=== PATIENT | male | born 1985 | race Caucasian/White ===

== ENCOUNTER 2019-10-12 07:28 | Outpatient (CLI) | payer OTHER, SELFPAY ==
[2019-10-15 23:28] LABS: SARS-CoV-2 RNA Undetected (Undetected); SARS-CoV-2 Specimen Source Nasopharynx
== END 2019-10-12 07:48 ==
PROVIDERS: PCP Specialist/Technologist Athletic Trainer; Visit Provider Family Medicine
DX: Z11.59 Encounter for screening for other viral diseases (principal)
CPT/HCPCS: U0003

== ENCOUNTER 2022-02-20 06:26 | Day surgery (SDC) | payer OTHER, SELFPAY ==
[2022-02-20] VITALS (14 sets, daily range): BP systolic 103–141; BP diastolic 36–87; PULSE 62–83; RESP 12–17; TEMP 36.3–36.7; O2SAT 93–97; BMI 32.4
--- NOTE | 2022-02-20 06:28 | W.PREOPHP ---
Assessment and Plan Assessment and plan (1) Left inguinal hernia: Status: Acute Assessment and plan: Patient is a pleasant 36-year-old gentleman who has bilateral inguinal hernias.? The left is greater than the right.? The left is the one that is causing him discomfort.? Discussed with him reason to fix hernias.? Mostly extremity symptoms.? As he has no symptoms from his right hernia we do not necessarily need to fix that at this time.? We reviewed the surgery in detail using a pamphlet as well as the risks and benefits and complications.? I also reviewed with him a TAP block for postoperative pain control. Anesthesia: general Previous surgical intolerances: No Previous surgical complications: No Pulmonary risk factors: none Planned procedure: Yes Sleep apnea risks: No Can climb one flight of stairs (12-13 steps) in less than 30 seconds without stopping and without symptoms: Yes The surgery proposed for this patient is: low risk Active cardiac conditions: none Active risk factors: none ASA (acetylsalicylic acid): not used Beta blockers: not used Risks, benefits and complications have been reviewed. Complications include but are not limited to bleeding, infection, injury to vas, vessels and nerves, injury to bowel and adverse reaction to medications. Questions were entertained and answered to their satisfaction and they wished to proceed. Proceed with Left inguinal hernia repair with mesh History of Present Illness Narrative: Mr Evans is a pleasant 36-year-old gentleman who is here today to discuss possible left inguinal hernia repair.? He tells me that he first noticed the hernia about a year ago.? The pain seemed to subside significantly.? Tension to it.? Recently has been helping his grandfather with stacking wood and doing other things for him which required lifting and he started to notice discomfort again.? It was quite painful about a week ago.? Now it is just a slight discomfort.? He is not having any trouble urinating or having bowel movements.? He denies any nausea or vomiting. Avery is doing well and there have been no changes in his health since he was last seen in the office. Review of Systems All systems reviewed & are unremarkable except as noted in HPI and below PFSH All Active Problems Right inguinal hernia (Acute) [place]-Schlatter's disease (Acute) Sleep disturbance (Acute) Palpitations (Acute) Sleep apnea (Acute) Left inguinal hernia (Acute) Cough (Acute) Medical History Dislocation of shoulder joint Insomnia Skin lesion Skin rash Social History Smoking/Tobacco Use Status: Never Smoking risk assessment performed?: Yes Alcohol Intake: current Alcohol Intake frequency: a few times a week Drug use: Never Do you feel safe at home: Yes Do you feel safe in your relationship?: Yes Meds Allergies and Home Medications Allergies Allergy/AdvReac Type Severity Reaction Status Date / Time No Known Allergies Allergy Unverified 01/15/22 11:03 Home Medications Medication Instructions Recorded Confirmed Type Unknown [No Known Home Meds] 01/15/22 01/15/22 History Exam Const General: comfortable and no acute distress Orientation: alert and oriented x3 Resp Effort & Inspection: normal respiratory effort Auscultation: clear to auscultation bilaterally Cardio Rate: regular rate Rhythm: regular rhythm GI Inspection: normal to inspection Palpation: soft, no hepatosplenomegaly and hernia (L>R inguinal hernias)
--- NOTE | 2022-02-20 06:31 | ROE_ITS ---
Date of service: 02/20/22 Time of Service: 08:21 Operative Note Operative Note DATE OF PROCEDURE: 02/20/22 PRE-OP DIAGNOSIS: left inguinal hernia POST-OP DIAGNOSIS: same PROCEDURE: Left inguinal hernia repair with mesh SURGEON: Tiffany Woods [employer] RESPONDER: Soraya Pacheco ANESTHESIA TYPE: Local By Surgeon and General LMA/ETT Refer to Anesthesia Record PATHOLOGY: none sent COMPLICATIONS: None Patient was transported to: PACU Patient's condition: stable Implants: Bard Mesh Indications: Patient is a pleasant 36-year-old gentleman who has bilateral inguinal hernias.? The left is greater than the right.? The left is the one that is causing him discomfort.? Discussed with him reason to fix hernias.? Mostly extremity symptoms.? As he has no symptoms from his right hernia we do not necessarily need to fix that at this time.? We reviewed the surgery in detail using a pamphlet as well as the risks and benefits and complications.? I also reviewed with him a TAP block for postoperative pain control. Risks, benefits and complications have been reviewed. Complications include but are not limited to bleeding, infection, injury to vas, vessels and nerves, injury to bowel and adverse reaction to medications. Questions were entertained and answered to their satisfaction and they wished to proceed. Findings: Indirect inguina hernia Procedure Description: After informed consent was obtained the patient was taken to the operating room and placed in a supine position. Monitors and SCDs were applied and a timeout was done. The patient's name, date of , procedure type, procedure site, allergies to medications, preoperative antibiotic, and DVT prophylaxis were all reviewed. Fire risk was assessed. The patient was then placed under anesthesia and an LMA was placed. The abdomen in the LLQ was clipped of Hair. Once anesthesia was done the abdomen was prepped and draped in a sterile surgical fashion. 0.25% Bupivocaine mixed with exparel was injected into the dermis in the left lower quadrant. An incision was made with a 10 blade in the left lower quadrant. Dissection was done with cautery through the subcutaneous tissues and Jorge's fascia down to the external oblique fascia. The external ring was identified and the external oblique fascia was opened sharply through the external ring. The cut fascia was grasped with hemostats the cord structures were identified and a Bhavin drain was placed around them. The ilioinguinal nerve was identified and cut. The cremasteric muscle was dissected away from the cord structures using both cautery and blunt dissection. A hernia sac was identified and removed from the cord structures using blunt dissection. The hernia sac was pushed back into the peritoneum. A flat piece of mesh was then attached to the lacunar ligament using a 2-0 Prolene double armed suture. The mesh was secured laterally and medially with a 2-0 Prolene, with a running suture. The tails of the mesh were wrapped around the cord structures effectively cinching down the internal ring. Once the mesh was secured the tissues were irrigated with some normal saline. No bleeding was identified. The external oblique fascia was reapproximated using 2-0 Vicryl running suture. The Jorge's fascia was reapproximated using interrupted 3-0 Vicryl. The dermis was reapproximated with a running 4-0 Vicryl. The skin was cleaned and dried and skin affix was applied. The patient was woken up and taken back to recovery in stable condition. There were no immediate complications. Sponge, instrument and needle counts were correct at the end of the case x2.
--- NOTE | 2022-02-20 06:34 | W.PM.DSUDISC ---
Date of service: 02/20/22 Time of Service: 08:19 Discharge Plan Disposition Patient Disposition: HOME Condition: Good Discharge Details Reason For Visit: inguinal hernia Attending Provider: Tiffany Woods Primary Care Provider: Soraya Brooks V Home Meds and New Rx's Prescriptions: New oxycodone 5 mg tablet 5 mg PO Q6H PRNQty: 14 0RF Discharge Instructions Additional Instructions: Activity at Home after surgery: 1. Make sure you walk outside at least 4 times per day 2. You should be able to climb a flight of stairs 3. No driving while in pain or taking pain medications 4. No strenuous activity or heavy lifting (no more then 10 lb) for 4 weeks Diet, Nutrition, & wound healin. Avoid alcohol until after you are recovered from your surgery 2. Make sure to eat plenty of lean protein (meat, fish, eggs, cottage cheese, beans) 3. Eat a variety of fruits and vegetables. Eat plenty of high fiber foods to avoid constipation. 4. Drink plenty of liquids to stay hydrated and avoid constipation Pain Medications: 1. Tylenol 650mg every 6 hours as needed and Ibuprofen 600 mg every 6 hours as needed. You may alternate between the 2 medications every 3 hours 2. If a narcotic has been prescribed take as directed only for breakthrough pain For Constipation: 1. Take Milk of Magnesia or MiraLax as needed for constipation Other: 1. You may shower daily. Do not scrub the incisions 2. Do not soak the incisions for 1 week 3. You may alternate ice and heat as needed for pain and swelling Wound Care: 1. Keep the incisions clean and dry Please call our office if you develop: 1. Fevers >101.5 2. Nausea or Vomiting 3. Worsening pain 4. Redness and thick discharge from the wounds If after hours please call the Hospital at and ask to speak to the on-call surgeon Referrals: Carmela Corbett DO [OSTEOPATHIC DOCTOR] - 03/07/22 9:30 am Activity:: see above Shower/Bathe:: 24 hours Diet:: As Tolerated Discharge Orders Discharge Orders: Discharge Order (Routine); Ordered 02/20/22 Ordered By: Tiffany Woods DS: Diagnosis Discharge Diagnosis (1) Left inguinal hernia: Status: Acute
--- NOTE | 2022-02-20 06:51 | W.ANESPRE ---
General Info Date of Service Date Performed: 02/20/22 Height: 5 ft 10 in Weight: 102.5 kg Body Mass Index (BMI): 32.4 Surgical Procedure: Operation Date: 02/20/22 07:40 Proposed Procedure Side Surgeon p Herniorrhaphy Inguinal Repair w/Mesh Left Tiffany Woods MD Meds Allergies and Home Medications Allergies Allergy/AdvReac Type Severity Reaction Status Date / Time No Known Allergies Allergy Verified 02/20/22 06:32 Home Medication Medication Instructions Recorded Unknown [No Known Home Meds] 01/15/22 Current Visit Medications: Current Medications Generic Name Dose Route Start Last Admin Trade Name Freq PRN Reason Stop Dose Admin Acetaminophen 1,000 mg 02/20/22 06:00 Acetaminophen 500 Mg Tab PO 02/20/22 23:59 PREOP UCHE Celecoxib 200 mg 02/20/22 06:00 Celecoxib 200 Mg Cap PO 02/20/22 23:59 PREOP UCHE Gabapentin 600 mg 02/20/22 06:00 Gabapentin 300 Mg Cap PO 02/20/22 23:59 PREOP UCHE Ringer's Solution 1,000 mls @ 80 mls/hr 02/20/22 06:00 IV 02/20/22 23:59 INFUSION UCHE Cefazolin Sodium/Dextrose 2 gm in 50 mls @ 100 mls/hr 02/20/22 06:00 Ancef Duplex IVPB 02/20/22 23:59 PREOP UCHE Ondansetron HCl 4 mg/ Sodium 52 mls @ 200 mls/hr 02/20/22 06:35 Chloride IVPB Q6H PRN PRN IV Miscellaneous Supplies 1 each 02/20/22 06:00 Iv Access IV 02/20/22 23:59 DIRECTED UCHE Oxycodone HCl 5 mg 02/20/22 06:35 Oxycodone 5 Mg Tab PO Q3H PRN PRN Pain Sodium Chloride 0 ml 02/20/22 06:00 Normal Saline Flush 10 Ml Syr IV 02/20/22 23:59 PRN PRN Sodium Chloride 0 ml 02/20/22 06:00 Normal Saline 10 Ml Vial IJ 02/20/22 23:59 DIRECTED PRN Sterile Water 0 ml 02/20/22 06:00 Water,Injection,Sterile 10 Ml Vial IJ 02/20/22 23:59 DIRECTED PRN PFSH Active Problems Active Problems: Problem Status Onset Code Cough R05.9 Left inguinal hernia K40.90 Sleep apnea G47.30 Palpitations R00.2 Sleep disturbance G47.9 Adrián-Schlatter's disease M92.529 Right inguinal hernia K40.90 Medical History Medical History Dislocation of shoulder joint Insomnia Skin lesion Skin rash Surgical History Surgical History (Updated 02/20/22 @ 06:32 by Kyree Palafox) Hx of vasectomy Tobacco Smoking/Tobacco Use Status: Never Alcohol Alcohol Intake: current Alcohol intake frequency: a few times a week Substance Use Substance use: Never Vital Signs and Lab Results Vital Signs Most Recent Vital Signs in EMR: Most Recent Vital Signs Temp Pulse Resp BP Pulse Ox 36.7 C 83 16 141/87 H 96 02/20/22 06:32 02/20/22 06:32 02/20/22 06:32 02/20/22 06:32 02/20/22 06:32 Lab Results Blood Type / Crossmatch: No Data to Display Complete Blood Count: No Data to Display Complete Metabolic Panel: No Data to Display Liver Function Panel: No Data to Display Coagulation Panel: No Data to Display Cardiac Panel: No Data to Display Arterial Blood Gas: No Data to Display Venous Blood Gas: No Data to Display Pancreas Panel: No Data to Display Thyroid Panel: No Data to Display Infectious Disease: No Data to Display Blood Cultures: No Data to Display Toxicology Panel: No Data to Display Anesthesia Assessment and Plan Anesthesia History Personal History: No History of Anesthesia Complications Family History: No Family History of Anesthesia Complications Exercise Tolerance Exercise Tolerance: Metabolic Equivalents>4 Pertinent Negatives Pertinent Negatives: No Symptoms of GERD, No Major Cardiovascular Symptoms or Complaints and No Major Pulmonary Symptoms or Complaints Cardiac & Pulmonary Exam Cardiac Exam: Normal S1/S2 Heart Sounds Pulmonary Exam: Clear Bilateral Breath Sounds Implantable Cardiac Device Does patient have a Pacemaker or an ICD?: No Airway Exam Known Difficult Airway: No Mallampati Class: 2 Mouth Opening: Normal (> 3cm) Thyromental Distance: Greater than 3 cm Neck Range of Motion: Full ROM Neck Circumference: Thick Teeth Condition: Normal Dentition ASA Classification ASA Score: ASA 2 Emergency Case?: No NPO Status NPO Status: NPO Clears >2 hours, Solids >8 hours Anesthesia Plan Resuscitation Status: Full Code Anesthesia Technique: General Anesthesia Airway Planned: LMA Pain Management: Other (Patient declined nerve block) Monitors Used: Standard Monitors
[2022-02-20] MEDS: Acetaminophen 500 MG TAB 1000 MG PO (06:54)
[2022-02-20] MEDS: Gabapentin 300 MG CAP 600 MG PO (06:54)
[2022-02-20] MEDS: Celecoxib 200 MG CAP PO (06:55)
[2022-02-20] MEDS: Lactated Ringers 1,000 ML 80 ML IV (06:55)
[2022-02-20] MEDS: ceFAZolin 2 GM/50 ML BAG IVPB (07:28)
[2022-02-20] MEDS: Bupivacaine LIPOSOME/PF 133 MG/10 ML VIAL IJ (07:42)
[2022-02-20] MEDS: Bupivacaine 0.25% Pres-Free 30 ML VIAL (07:42)
[2022-02-20] MEDS: oxyCODONE 5 MG TAB PO (10:00)
--- NOTE | 2022-02-20 10:52 | W.ANESPOSTOP ---
Postoperative Evaluation Date, Time and Location Date Performed: 02/20/22 Time Performed: 10:52 Patient Location: Day Surgery Unit Vital Signs Most Recent Imported Vital Signs: Most Recent Vital Signs Temp Pulse Resp BP Pulse Ox 36.4 C L 62 16 120/77 96 02/20/22 10:12 02/20/22 10:12 02/20/22 10:12 02/20/22 10:12 02/20/22 10:12 Pain Score Most Recent Pain Score: Most Recent Pain Score Pain Level 5 02/20/22 10:12 Assessment Mental Status: Awake (Alert & Oriented to Patient Baseline) Airway and Respiratory Function: Patent airway with normal (patient baseline) respiratory exam Cardiovascular Function: Hemodynamically Stable Hydration Status: Adequately Hydrated Nausea & Vomiting: No Nausea or Vomiting Pain: Pain is tolerable per patient Peripheral Nerve Block: Patient did not receive a nerve block
== END 2022-02-20 10:49 | disposition home or self-care (01) ==
PROVIDERS: PCP Family Medicine; Visit Provider Surgery
PROC: (CPT 49505; principal; 2022-02-20 07:30)
DX: K40.90 Unilateral inguinal hernia, without obstruction or gangrene, not specified as recurrent (principal); G47.00 Insomnia, unspecified; G47.30 Sleep apnea, unspecified
CPT/HCPCS: 49505; C1781; J0690; J1100; J2250; J2405

== ENCOUNTER 2022-06-27 16:18 | Outpatient (REF) | payer BC, SELFPAY ==
[2022-06-27 17:45] LABS: Calculated LDL 159 mg/dL (<100); Cholesterol 246 mg/dL (<200); HDL Cholesterol 58 mg/dL (40-60); TSH (W/Ref FT4) 1.01 uIU/mL (0.36-3.74); Triglyceride 146 mg/dL (<150)
[2022-06-27 17:53] LABS: Vitamin D 25 Total 17.3 ng/mL (30-100)
== END 2022-06-27 16:19 | disposition home or self-care (01) ==
LOC: NCHCN 16:18
PROVIDERS: PCP Family Medicine; Visit Provider Family Medicine
DX: Z00.00 Encounter for general adult medical examination without abnormal findings (principal); G47.9 Sleep disorder, unspecified
CPT/HCPCS: 80061; 82306; 84443

== ENCOUNTER 2024-01-07 14:40 | Outpatient (CLI) | payer BC, SELFPAY ==
--- NOTE | 2024-01-07 08:14 | DI.RAD_ITS ---
Exam(s) XR SHOULDER LT COMPLETE 2+V EXAM: XR SHOULDER LT COMPLETE 2+V CLINICAL HISTORY: F/U SHOULDER DISLOCATION. TECHNIQUE: 2D digital imaging was performed. Two views. COMPARISON: No exams were available for comparison FINDINGS: BONES: No acute fracture is present. No bony destructive lesion is seen. JOINTS: No dislocation present. No significant degenerative changes. SOFT TISSUE: Normal. IMPRESSION: Unremarkable radiographs of the left shoulder. DATA REPOSITORY: RADIATION DOSE DELIVERED:
== END 2024-01-07 14:41 | disposition home or self-care (01) ==
LOC: DIORS 14:40
PROVIDERS: PCP Family Medicine; Visit Provider Student in an Organized Health Care Education/Training Program
DX: S43.085A Other dislocation of left shoulder joint, initial encounter (principal); X58.XXXA Exposure to other specified factors, initial encounter
CPT/HCPCS: 73030

== ENCOUNTER 2024-04-23 08:50 | Day surgery (SDC) | payer OTHER, SELFPAY ==
[2024-04-23] VITALS (39 sets, daily range): BP systolic 129–173; BP diastolic 46–92; PULSE 73–95; RESP 12–23; TEMP 36–36.7; O2SAT 88–98; BMI 33.3
--- NOTE | 2024-04-23 07:33 | W.PM.DSUDISC ---
Date of service: 04/23/24 Discharge Plan Disposition Patient Disposition: Home Condition: Stable Discharge Details Attending Provider: Jack Nettles Primary Care Provider: Soraya Brooks V Home Meds and New Rx's Prescriptions: New naproxen 250 mg tablet 250 - 500 mg PO BID PRN (Reason: moderate pain and swelling) Qty: 40 0RF oxycodone 5 mg tablet 5 - 10 mg PO .q4-6h MDD 30 mg PRN (Reason: severe pain) Qty: 18 0RF Discharge Instructions Additional Instructions: Surgery: Left shoulder arthroscopy with labral repair/stabilization and SLAP repair Activity: For 6 weeks, you should keep your arm at your side in a neutral position at all times except for physical therapy. Do not try to lift or raise your arm using your own muscles. You should use the sling whenever you are out of the house. At home it is best to remove the sling and rest the arm on a pillow at your side or support the operative side with your other hand. You may allow the arm to dangle at your side. A physical therapy prescription will be sent electronically to begin in about 3 weeks. SLAP repair protocol: Full elbow range of motion okay, but gentle biceps flexion and supination Biceps isometrics after 8 weeks Bicep strengthening after 12 weeks Postoperative protocol/ ROM restrictions: Weeks 0?3: 0 degrees external rotation Weeks 3?6: Maximum 30 degrees external rotation and 90 degrees forward elevation Weeks 6?8: Maximum 45 degrees external rotation and 120 degrees forward elevation Weeks 8+: Advance to full range of motion Weeks 10-12+: Start light rotator cuff strengthening and dynamic scapular stabilization Prescriptions: Naproxen 250 mg take 1-2 every 12 hours with a meal as needed for moderate pain Oxycodone 5 mg take 1-2 every 4-6 hours as needed for severe pain You may use [id number] Tylenol (acetaminophen) as needed for mild pain. These pain medications may be taken all at once or in different combinations as needed. Also, recommend Colace (docusate) as a stool softener as surgery and pain medicine cause constipation. You may try [id number]-[id number] diphenhydramine (Benadryl) 25-50 mg nightly as a sleep aid Dressings: Remove shoulder bandage after 3 days. Leave the sticky Steri-Strips in place until they fall off or remove them after you shower. Cover the incisions with Band-Aids or leave them open to air. You may shower after 5 days. Follow-up: 10-[address] Nettles You may take off the leg compression stockings this evening at home. You may also leave them on a few days longer if you have a history of leg swelling or edema. Let us know right away if you develop any redness, drainage, fevers, chest pain, or trouble breathing. Do not drink alcohol or drive for at least 24 hours after anesthesia. Please call the office during business hours with any questions or concerns. Stand Alone Forms: Anesthesia Discharge Inst., Anes.Nerve Block Instructions, Lorelei Garcia ([facility]U) Referrals: Jack Nettles MD [ [facility] STAFF PHYSICIAN] - 05/05/24 9:00 am Discharge Orders Discharge Orders: Discharge Order (Routine); Ordered 04/23/24 Ordered By: Treva Velez DS: Diagnosis Discharge Diagnosis (1) SLAP lesion of left shoulder: Status: Acute (2) Labral tear of shoulder: Status: Acute
--- NOTE | 2024-04-23 09:17 | W.ANESPRE ---
General Info Date of Service Date Performed: 04/23/24 Height: 5 ft 10 in Weight: 105.5 kg Body Mass Index (BMI): 33.3 Surgical Procedure: Operation Date: 04/23/24 11:10 Proposed Procedure Side Surgeon p Shoulder Possible Rotator Cuff ArthroscopicRemplissage w/Extensive Debridement, Labral Repair/Stabilization, Biceps Tenodesis vs SLAP Repair Left Jack Nettles MD Meds Allergies and Home Medications Allergies Allergy/AdvReac Type Severity Reaction Status Date / Time No Known Allergies Allergy Verified 04/23/24 09:18 Home Medication ?Medication ?Instructions ?Recorded naproxen 250 mg tablet 250 - 500 mg (1 - 2 x 250 mg) PO 04/23/24 BID PRN moderate pain and swelling #40 tabs oxycodone 5 mg tablet 5 - 10 mg (1 - 2 x 5 mg) PO .q4-6h 04/23/24 PRN severe pain #18 tabs Current Visit Medications: Current Medications Generic Name Dose Route Start Last Admin Trade Name Freq PRN Reason Stop Dose Admin Ringer's Solution 1,000 mls @ 30 mls/hr 04/23/24 06:00 IV 04/23/24 23:59 INFUSION UCHE Cefazolin Sodium 3,000 mg/ 100 mls @ 200 mls/hr 04/23/24 06:00 Sodium Chloride IV 04/23/24 23:59 PREOP UCHE Tranexamic Acid/Sodium Chloride 1,000 mg in 100 mls @ 600 mls/hr 04/23/24 06:00 IVPB 04/23/24 23:59 PREOP UCHE IV Miscellaneous Supplies 1 each 04/23/24 06:00 Iv Access IV 04/23/24 23:59 DIRECTED UCHE Oxycodone HCl 0 mg 04/23/24 07:33 Oxycodone 5 Mg Tab PO 05/23/24 07:32 Q3H PRN PRN Pain Sodium Chloride 0 ml 04/23/24 06:00 Normal Saline Flush 10 Ml Syr IV 04/23/24 23:59 PRN PRN Sodium Chloride 0 ml 04/23/24 06:00 Normal Saline 10 Ml Vial IJ 04/23/24 23:59 DIRECTED PRN Sterile Water 0 ml 04/23/24 06:00 Water,Injection,Sterile 10 Ml Vial IJ 04/23/24 23:59 DIRECTED PRN PFSH Active Problems Active Problems: Problem Status Onset Code SLAP lesion of left shoulder Acute S43.432A Labral tear of shoulder Acute S43.439A Recurrent dislocation, left shoulder Acute 12/21/23 M24.412 Recurrent left inguinal hernia Acute K40.91 Right inguinal hernia Acute K40.90 Adrián-Schlatter's disease Acute M92.529 Sleep disturbance Acute G47.9 Palpitations Acute R00.2 Sleep apnea Acute G47.30 Left inguinal hernia Acute K40.90 Cough Acute R05.9 Medical History Medical History Injury of axillary nerve, left arm, 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 Major depression, single episode Skin lesion Insomnia Dislocation of shoulder joint Skin rash Surgical History Surgical History History of left inguinal hernia repair (~02/20/22) Hx of vasectomy Tobacco Smoking/Tobacco Use Status: Never Alcohol Alcohol Intake: current Alcohol intake frequency: a few times a week Alcohol type: beer and hard liquor Substance Use Substance use: Never Substance use type: does not use Vital Signs and Lab Results Vital Signs Most Recent Vital Signs in EMR: Most Recent Vital Signs Temp Pulse Resp BP Pulse Ox 36.7 C 74 16 171/85 H 95 04/23/24 09:11 04/23/24 09:11 04/23/24 09:11 04/23/24 09:11 04/23/24 09:11 Lab Results Blood Type / Crossmatch: No Data to Display Complete Blood Count: No Data to Display Complete Metabolic Panel: No Data to Display Liver Function Panel: No Data to Display Coagulation Panel: No Data to Display Cardiac Panel: No Data to Display Arterial Blood Gas: No Data to Display Venous Blood Gas: No Data to Display Pancreas Panel: No Data to Display Thyroid Panel: No Data to Display Infectious Disease: No Data to Display Blood Cultures: No Data to Display Toxicology Panel: No Data to Display Anesthesia Assessment and Plan Anesthesia History Personal History: No History of Anesthesia Complications Family History: No Family History of Anesthesia Complications Exercise Tolerance Exercise Tolerance: Metabolic Equivalents>4 Cardiac & Pulmonary Exam Cardiac Exam: Normal S1/S2 Heart Sounds Pulmonary Exam: Clear Bilateral Breath Sounds Implantable Cardiac Device Does patient have a Pacemaker or an ICD?: No Airway Exam Known Difficult Airway: No Mallampati Class: 2 Mouth Opening: Normal (> 3cm) Thyromental Distance: Greater than 3 cm Neck Range of Motion: Full ROM Neck Circumference: Thick Teeth Condition: Normal Dentition ASA Classification ASA Score: ASA 2 Emergency Case?: No NPO Status NPO Status: NPO Clears >2 hours, Solids >8 hours Anesthesia Plan Resuscitation Status: Full Code Anesthesia Technique: General Anesthesia Airway Planned: Endotracheal Tube Pain Management: Surgeon and patient request nerve block Monitors Used: Standard Monitors Preoperative Comments:: 38 yo male for shoulder. Sig PMHx: ABIOLA, cough, axillary nerve injury, depression. never smoker, occ etoh. Previous Anes: - hernia, LMA 4, no issues.
[2024-04-23] MEDS: Lactated Ringers 1,000 ML 30 ML IV ×2 (09:30→14:53)
--- NOTE | 2024-04-23 11:39 | ROE_ITS ---
Operative Note Operative Note PRE-OP DIAGNOSIS: Left: 1. Shoulder dislocation 2. Labral tear 3. SLAP tear 4. Hill-Sachs lesion POST-OP DIAGNOSIS: same PROCEDURE: Left: 1. Arthroscopic labral repair/stabilization, CPT #52847: This involved suture anchor repair of the anterior capsular labral ligamentous complex. 2. Arthroscopic SLAP repair, CPT #55225: This involved suture anchor repair of the superior labrum & biceps anchor. The assistant program director was medically required in order to help assist in techniques above, which require positioning the arm, holding the arthroscope, and manipulating multiple instruments and sutures at the same time. This cannot be done without the help of an experienced assistant program director. SURGEON: Jack Nettles CERTIFIED HOME HEALTH AIDE: Treva Velez ANESTHESIA TYPE: Local By Surgeon, General LMA/ETT and Primary Nerve Block Refer to Anesthesia Record ESTIMATED BLOOD LOSS: 5 PATHOLOGY: none sent COMPLICATIONS: None Patient was transported to: PACU Patient's condition: stable Implants: Arthrex: 2.9mm PushLock x4 Indications: The patient was diagnosed with the above conditions and appropriately indicated for surgical intervention. Please see complete medical record for details. Findings: Exam under anesthesia: Negative sulcus sign, negative MDI, unable to dislocate, no significant anterior posterior instability. Glenohumeral joint: Biceps and subscapularis intact. Articular supraspinatus intact. Infraspinatus intact with only small difficult to visualize posterior humeral head Hill-Sachs lesion. Intact glenoid and humeral cartilage with mild central and anterior glenoid chondromalacia. No bone loss. Largely deficient anterior labrum and M GH L. Partially unstable biceps anchor SLAP tear. Subacromial space: deferred Procedure Description: In the operating room, general anesthesia was induced. Bilateral shoulders were examined. The patient was positioned in the beachchair position. All bony prominences were well-padded. Preoperative antibiotics were administered. The shoulder was prepped and draped in the usual sterile fashion. The correct patient, procedure, and side of the procedure were all verified prior to incision. Starting through the posterior portal a standard complete diagnostic arthroscopy was performed of the glenohumeral joint including inspection of the long head of the biceps, anterior and superior labrum, subscapularis tendon, supraspinatus and infraspinatus tendons, and axillary recess. The glenoid and humeral head cartilage as well as the posterior labrum were inspected from an anterior viewing portal. Significant findings and interventions noted above. The glenoid bone and cartilage was largely intact and as expected there was deficient anterior labrum. Working through the high anterior portal the tissue grasper could be used to reduce and create an anterior inferior through anterior capsular ligamentous complex tight bumper that also made a nice hammock through connection to the AIG HL. Viewing anteriorly it was clear there was no medialized or hitting labral tissue to add to this repair. Anterior-inferior later there was a capsular ligamentous structure which represented the lower extent of the injury and MRI. The biceps was intact through the superior labrum, but the superior labrum had moderately increased instability at the superior aspect the glenoid anterior and posterior to it anchor. Posterior labrum was intact. Rotator interval had moderate capsulitis synovitis, which was debrided. A second rigid cannula was inserted anteriorly inferiorly over the subscapularis targeting the lower aspect of the planned repair. The glenoid rim was abraded at the planned suture anchor locations while preserving intact cartilage and tissue to optimize healing of repair. Starting low the 45 degree lasso was used to secure the start of the repair while grasping holding the anterior capsular ligamentous tissue through the high anterior portal in the reduced position and shuttle a suture tape FiberLink which was cinched around the tissue and secured to an anterior inferior push lock anchor with nice tissue reapproximation and fixation strength at about 7:00. The repair was continued more anteriorly securing additional capsular ligamentous tissue while avoiding the subscapularis and recreating a bumper along the anterior-inferior 3 anterior margin the glenoid at about 8 and 9:00 with 2 additional suture tape FiberLink's and push lock anchors. At the superior aspect of the glenoid the superior labrum and biceps were lifted up and the mechanical shaver used to abrade the SLAP tear in preparation for healing. The high anterior cannula was then redirected about the 11 o'clock position just in front of the biceps anchor and working through this anchor the anterior aspect of the SLAP tear and biceps anchor was secured with additional FiberLink to another fourth push lock anchor. Care was taken to ensure avoiding over constraining the biceps anchor. The tear was inspected posteriorly and localized with a spinal needle, but the SLAP tear and biceps anchor was nicely stabilized from anteriorly and no additional posterior anchor was done. The glenohumeral joint was then inspected and it demonstrated reduced redundancy and nice stability. No additional stabilization was needed or done. The shoulder was drained of arthroscopic fluid. All portal sites were copiously irrigated. These incisions were closed using 3-0 Monocryl in a buried fashion and then covered with Mastisol, Steri-Strips, Xeroform, dry gauze, and ABDs. The dressings were covered and secured with Medipore tape. The operative extremity was placed into a sling for immobilization. The patient awoke from anesthesia without complication and was transferred to the recovery room in a stable condition. Date of Procedure: 04/23/24
--- NOTE | 2024-04-23 12:19 | W.ANESNERVE ---
Nerve Block Single Injection Procedure Date and Time Date Performed: 04/23/24 Procedure Start: 11:48 Location Where Procedure Performed Procedure Location: Day Surgery Unit Reason Performed: Postoperative Analgesia Requesting Provider: Jack Nettles Timeout Performed Timeout Performed: Yes Monitoring Used ECG, Blood Pressure and SpO2 Sterility Sterility: Hand Hygiene, Surgical Cap, Surgical Mask, Sterile Gloves and Chlorhexidine Sedation Given During Procedure Sedation Given (Indicate Dose Given): Versed IV (3 mg + 2 mg) Dose:: 5 mg Patient Mental Status Patient Mental Status: Sedate with meaningful communication Nerve Block 1st Nerve Block: Laterality: Left Block Type: Interscalene Ultrasound Image Saved?: Yes Needle / Catheter Used: 100mm SonoPlex II Local Anesthetic Bolus (Indicate Dose Given): Lidocaine used for local infiltration of skin, Injected in 3-5ml increments after negative blood aspiration, Bupivacaine 0.5% Dose:: 10 mL and Exparel Dose:: 10 mL Additives (Indicate Dose Given): None Ultrasound: Sterile probe cover and gel used Nerve Stimulator: Supplement to Ultrasound use and No twitch or parasthesia noted < 0.5 mA Paresthesia: None Procedure Tolerated: No Complications Procedure Outcome: Successful Performed By: Nicola Terry
[2024-04-23] MEDS: ceFAZolin 3,000 MG in Normal Saline 100 ML 200 MG IV (12:42)
[2024-04-23] MEDS: TRANEXAMIC ACID/SOD. CHL. 1,000 MG/100 ML BAG 600 MG IVPB (12:47)
[2024-04-23] MEDS: Bupivacaine 0.25% Pres-Free W/EPI 30 ML VIAL (13:09)
[2024-04-23] MEDS: EPINEPHrine 10 MG/10 ML ML (14:21)
--- NOTE | 2024-04-23 15:31 | W.ANESPOSTOP ---
Postoperative Evaluation Date, Time and Location Date Performed: 04/23/24 Time Performed: 15:31 Patient Location: PACU Vital Signs Most Recent Imported Vital Signs: Most Recent Vital Signs Temp Pulse Resp BP Pulse Ox 36.4 C L 75 16 152/75 H 89 L 04/23/24 15:19 04/23/24 15:20 04/23/24 15:21 04/23/24 15:20 04/23/24 15:21 Pain Score Most Recent Pain Score: Most Recent Pain Score Pain Level 0 04/23/24 15:19 Assessment Mental Status: Awake (Alert & Oriented to Patient Baseline) Airway and Respiratory Function: Patent airway with normal (patient baseline) respiratory exam Cardiovascular Function: Hemodynamically Stable Hydration Status: Adequately Hydrated Nausea & Vomiting: No Nausea or Vomiting Pain: Pain is tolerable per patient Peripheral Nerve Block: Regional nerve block not resolved at time of post operative discharge
== END 2024-04-23 16:36 | disposition home or self-care (01) ==
LOC: SUR 08:50
PROVIDERS: PCP Family Medicine; Visit Provider Student in an Organized Health Care Education/Training Program
PROC: (CPT 29827; principal; 2024-04-23 11:00)
DX: S43.432A Superior glenoid labrum lesion of left shoulder, initial encounter (principal); X58.XXXA Exposure to other specified factors, initial encounter; M24.412 Recurrent dislocation, left shoulder; S42.292A Other displaced fracture of upper end of left humerus, initial encounter for closed fracture; G89.18 Other acute postprocedural pain
CPT/HCPCS: 29806; 29807; 64415; J0131; J0665; J0666; J0690; J1100; J1805; J1885; J2250; J2405; J2704